=== PATIENT | male | born 1950 | race Caucasian/White ===

== ENCOUNTER 2016-06-24 11:54 | Emergency (ER) | payer BC ==
[2016-06-24] MEDS ORDERED: KETOROLAC 30 MG/ML VIAL (J1885) As Ordered ONE (13:13)
[2016-06-24] MEDS ORDERED: MORPHINE 2 MG/ML 1ML SYRINGE As Ordered ONE (13:13)
[2016-06-24] MEDS ORDERED: ONDANSETRON 4MG/2ML VIAL (J2405) As Ordered ONE (13:13)
[2016-06-24 13:41] LABS: BASO % 0.6 % (0.0-1.0); EOS # 0.1 K/mm3 (0.0-0.50); EOS % 1.7 % (0.0-3.0); LARGE UNSTAINED CELL # 0.1 K/mm3 (0.0-0.4); LARGE UNSTAINED CELL % 2.6 % (0.0-4.0); LYMPH # 1.2 K/mm3 (1.5-4.5); MEAN CORPUSCULAR HEMOGLOBIN 30.8 pg (27.0-33.0); MEAN CORPUSCULAR HGB CONC 35.2 g/dl (32.0-36.5); MEAN CORPUSCULAR VOLUME 87.7 fl (80.0-96.0); MONO # 0.4 K/mm3 (0.0-0.8); MONO % 7.9 % (0.0-5.0); NEUTROPHILS # 3.5 K/mm3 (1.8-7.7); NEUTROPHILS % 67.2 % (36.0-66.0); PLATELET COUNT, AUTOMATED 228 k/mm3 (150-450); RED CELL DISTRIBUTION WIDTH 12.8 % (11.5-14.5); WHITE BLOOD COUNT 5.2 K/mm3 (4.0-10.0)
--- NOTE | 2016-06-24 13:48 | REP ---
CT ABDOMEN AND PELVIS WITHOUT IV OR ORAL CONTRAST: HISTORY: Left upper quadrant pain. 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 The lung window settings show that the lung bases are clear. There is no evidence of pleural effusion. The liver and the spleen are normal in size and homogeneous in texture. Gallbladder is unremarkable. No pancreatic abnormality is observed. No adrenal lesion is seen. Small and large intestinal bowel loops are normal in the upper abdomen. The kidneys are morphologically intact. Pelvic CT images show normal large and small bowel loops as well. There is no CT evidence of appendicitis. No abdominal wall defect is seen. No pelvic mass or adenopathy is noted. No bony destructive lesion seen. IMPRESSION: No significant abnormality noted. No urinary tract calculus or hydronephrosis seen. Signed by Volodymyr Fernández MD 06/24/2016 02:06 P
[2016-06-24 14:02] LABS: ALBUMIN/GLOBULIN RATIO 1.38 (1.00-1.93); ALKALINE PHOSPHATASE 77 U/L (45-117); ALT/SGPT 20 U/L (12-78); AMYLASE 35 U/L (25-115); ANION GAP 9 MEQ/L (8-16); AST/SGOT 14 U/L (15-37); BILIRUBIN,DIRECT 0.2 MG/DL (0.0-0.2); BILIRUBIN,TOTAL 0.9 MG/DL (0.2-1.0); BLOOD UREA NITROGEN 12 MG/DL (7-18); CALCIUM LEVEL 8.5 MG/DL (8.8-10.2); CARBON DIOXIDE LEVEL 27 MEQ/L (21-32); CHLORIDE LEVEL 105 MEQ/L (98-107); CREATININE FOR GFR 0.82 MG/DL (0.70-1.30); GLOMERULAR FILTRATION RATE > 60.0 (>49); GLUCOSE, FASTING 106 MG/DL (80-110); POTASSIUM SERUM 3.6 MEQ/L (3.5-5.1); SODIUM LEVEL 141 MEQ/L (136-145); TOTAL PROTEIN 6.9 GM/DL (6.4-8.2)
--- NOTE | 2016-06-24 15:38 | EDDOCDS ---
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 Presenting complaint: Patient states: left upper abd pain since last feb. saw PMD tues for pain. no n/v/d. pain just wont go away. had CT scan mar and negative for hernia. was having pain from LUQ to groin/rectum. pain in groin and rectum improved. Adult Sepsis Screening: The patient does not have new or worsening altered mentation. Patient's respiratory rate is less than 22. Systolic blood pressure is greater than 100. Patient has a qSOFA score of 0- Negative Sepsis Screen. Suicide/Homicide risk assessment- the patient denies having any suicidal and/or homicidal ideations and does not present with any other emotional, behavioral or mental health complaints. Status: Patient is not a personal service workers or dependent. Transition of care: patient was not received from another setting of care. 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 srm Triage Assessment: 12:10 General: Appears in no apparent distress, Behavior is appropriate for age, cooperative. srm Pain: Pain currently is 10 out of 10 on a pain scale. Pt Declines HIV testing. GI: Reports left upper abdominal pain. Historical: - Allergies: no known allergies; - Home Meds: 1. Norvasc Unknown Oral once daily 2. omeprazole 20 mg Oral cpDR 1 cap 2 times per day - PMHx: GERD; Hernia; - PSHx: hernia; hydrocele; - Social history: Smoking status: Patient states was never smoker of tobacco. No barriers to communication noted, The patient speaks fluent Czech, Speaks appropriately for age. - Family history: No immediate family members are acutely ill. - : The pt / caregiver states he / she is not on anticoagulants. Home medication list is obtained from the patient. - Exposure Risk Screening:: None identified. Screenin:35 Screening information is obtained from the patient. Fall risk: No risks identified. mb9 Assistance ADL's: requires no assistance with activities of daily living. Abuse/DV Screen: The patient / caregiver reports he/she is: not in a situation that causes fear, pain or injury. Nutritional screening: No deficits noted. Advance Directives: There is no active DNR order. home support is adequate. Assessment: 13:35 General: Appears in no apparent distress, Behavior is appropriate for age, cooperative. mb9 Pain: Location: left upper quadrant and left lower quadrant Pain currently is 8 out of 10 on a pain scale. Respiratory: Airway is patent Respiratory effort is even, unlabored, Breath sounds are clear bilaterally. GI: Abdomen is flat, non- distended Bowel sounds present X 4 quads. Abd is soft and non tender X 4 quads. 14:22 Reassessment: Patient appears in no apparent distress at this time. Patient states mb9 feeling better. Patient states symptoms have improved. General: Appears in no apparent distress, Behavior is appropriate for age, cooperative. Pain: Location: left lower quadrant and left upper quadrant Pain currently is 1 out of 10 on a pain scale. Respiratory: Airway is patent Respiratory effort is even, unlabored. 15:22 Reassessment: Patient appears in no apparent distress at this time. Patient states mb9 feeling better. Adult Sepsis Screening: The patient does not have new or worsening altered mentation. Patient's respiratory rate is less than 22. Systolic blood pressure is greater than 100. Patient has a qSOFA score of 0- Negative Sepsis Screen. General: Appears in no apparent distress, Behavior is anxious. Respiratory: Airway is patent Respiratory effort is even, unlabored. Vital Signs: 11:56 BP 165 / 82 RA Sitting (auto/lg); Pulse 75; Resp 18; Temp 98.6(O); Pulse Ox 96% on R/A; rs6 Weight 70.31 kg (R); Height 5 ft. 8 in. (172.72 cm) (R); Pain 10/10; 12:55 BP 160 / 90 (auto/); mb9 12:59 Pulse 66 MON; Pulse Ox 97% ; mb9 13:10 BP 158 / 79 (auto/); mb9 13:11 Pulse 68 MON; Pulse Ox 95% ; mb9 13:25 BP 159 / 84 (auto/); mb9 13:25 Pulse 74 MON; Pulse Ox 97% ; mb9 13:40 Pulse 70 MON; Pulse Ox 95% ; mb9 13:40 BP 139 / 68 (auto/); mb9 13:55 Pulse 68 MON; Pulse Ox 95% ; mb9 13:55 BP 138 / 72 (auto/); mb9 14:10 Pulse 68 MON; Pulse Ox 96% ; mb9 14:10 BP 140 / 77 (auto/); mb9 14:21 Pain 1/10; mb9 14:22 Pain 1/10; mb9 14:25 Pulse 70 MON; Pulse Ox 96% ; mb9 14:25 BP 138 / 76 (auto/); mb9 14:40 Pulse 62 MON; Pulse Ox 96% ; mb9 14:40 BP 136 / 72 (auto/); mb9 14:55 Pulse 68 MON; Pulse Ox 96% ; mb9 14:55 BP 139 / 82 (auto/); mb9 14:57 BP 144 / 80 (auto/); mb9 14:58 Pulse 70 MON; Resp 17; Temp 97.3(TE); Pulse Ox 97% ; mb9 11:56 Body Mass Index 23.57 (70.31 kg, 172.72 cm) [facility] Vitals: 11:56 Log In Time: June 24, 2016 at 11:45. [facility] ED Course: 11:55 Patient visited by Esther De La Cruz PCA. rs6 11:55 Jeffrey Bui is Private Physician. rs6 11:55 Patient moved to Waiting rs6 11:56 Patient visited by Esther De La Cruz PCA. rs6 11:57 Patient moved to Pre RCE rs6 12:07 Triage Initiated srm 12:47 Patient moved to 18 kr3 12:53 Samy Gutierrez FNP is PHCP. ke 12:54 Patient visited by Samy Gutierrez FNP. ke 12:54 Patient visited by Samy Gutierrez FNP. ke 12:56 Patient has correct armband on for positive identification. Placed in gown. Bed in low ct3 position. Call light in reach. Side rails up X2. telemetry monitor on. Pulse ox on. NIBP on. 12:57 Patient visited by Johnson, Hannah, TOOL MAINTENANCE WORKER. ct3 13:33 Patient visited by Samy Gutierrez FNP. ke 13:35 The patient / caregiver is instructed regarding the plan of care and ED course. mb9 13:35 Inserted saline lock: 18 gauge in right forearm and blood collected. The patient mb9 tolerated the procedure well. 13:57 Patient visited by Samy Gutierrez FNP. ke 14:01 Patient name changed from Juan\S\\S\Lyn\S\ to Juan\S\Antwon\S\Lyn. EDMS 14:03 [facility] Payment Agreement was scanned into [employer] and attached to record. lg 14:13 CT ABD & PELVIS: No Contrast Returned. EDMS 14:21 Jeffrey Bui is Referral Physician. ke 14:58 Discontinued IV lock intact, bleeding controlled, pressure dressing applied, No mb9 redness/swelling at site. No procedures done that require assistance. Administered Medications: 13:34 Drug: NS 0.9% 1000 ml [sodium chloride 0.9 % intravenous solution] Route: IV; Rate: 100 mb9 mL/hr; Site: right forearm; 13:34 Drug: Ondansetron 4 mg [ondansetron HCl 2 mg/mL intravenous solution (2 mL)] Route: mb9 IVP; Site: right forearm; 14:22 Follow up: Response: Nausea is resolved mb9 13:34 Drug: ketorolac 30 mg [ketorolac 30 mg/mL (1 mL) injection solution (1 mL)] Route: IVP; mb9 Site: right forearm; 14:22 Follow up: Pain 1/10 Adult; Response: Pain is decreased mb9 13:34 Drug: morphine 2 mg [morphine 2 mg/mL intravenous cartridge (1 mL)] Route: IVP; Site: mb9 right forearm; 14:21 Follow up: Pain 1/10 Adult; Response: Confirmed pt not driving.; Pain is decreased mb9 Order Results: Lab Order: Amylase; SPEC'M 06/24/16 13:30 Test: AMYLASE; Value: 35; Range: 25-115; Units: U/L; Status: F Lab Order: Basic Metabolic Profile; SPEC'M 06/24/16 13:30 Test: GLUCOSE, FASTING; Value: 106; Range: 80-110; Units: MG/DL; Status: F Test: BLOOD UREA NITROGEN; Value: 12; Range: 7-18; Units: MG/DL; Status: F Test: CREATININE FOR GFR; Value: 0.82; Range: 0.70-1.30; Units: MG/DL; Status: F Test: GLOMERULAR FILTRATION RATE; Value: > 60.0; Range: >49; Status: F Test: SODIUM LEVEL; Value: 141; Range: 136-145; Units: MEQ/L; Status: F Test: POTASSIUM SERUM; Value: 3.6; Range: 3.5-5.1; Units: MEQ/L; Status: F Test: CHLORIDE LEVEL; Value: 105; Range: 98-107; Units: MEQ/L; Status: F Test: CARBON DIOXIDE LEVEL; Value: 27; Range: 21-32; Units: MEQ/L; Status: F Test: ANION GAP; Value: 9; Range: 8-16; Units: MEQ/L; Status: F Test: CALCIUM LEVEL; Value: 8.5; Range: 8.8-10.2; Abnormal: Below low normal; Units: MG/DL; Status: F Test Note: ; Units are mL/min/1.73 m2 Chronic Kidney Disease Staging per NKF: Stage I & II GFR >=60 Normal to Mildly Decreased Stage III GFR 30-59 Moderately Decreased Stage IV GFR 15-29 Severely Decreased Stage V GFR <15 Very Little GFR Left ESRD GFR <15 on INFORMATION RESOURCES MANAGER Lab Order: CBC with Diff; SPEC'M 06/24/16 13:30 Test: WHITE BLOOD COUNT; Value: 5.2; Range: 4.0-10.0; Units: K/mm3; Status: F Test: RED BLOOD COUNT; Value: 4.74; Range: 4.30-6.10; Units: M/mm3; Status: F Test: HEMOGLOBIN; Value: 14.6; Range: 14.0-18.0; Units: g/dl; Status: F Test: HEMATOCRIT; Value: 41.6; Range: 42.0-52.0; Abnormal: Below low normal; Units: %; Status: F Test: MEAN CORPUSCULAR VOLUME; Value: 87.7; Range: 80.0-96.0; Units: fl; Status: F Test: MEAN CORPUSCULAR HEMOGLOBIN; Value: 30.8; Range: 27.0-33.0; Units: pg; Status: F Test: MEAN CORPUSCULAR HGB CONC; Value: 35.2; Range: 32.0-36.5; Units: g/dl; Status: F Test: RED CELL DISTRIBUTION WIDTH; Value: 12.8; Range: 11.5-14.5; Units: %; Status: F Test: PLATELET COUNT, AUTOMATED; Value: 228; Range: 150-450; Units: k/mm3; Status: F Test: NEUTROPHILS %; Value: 67.2; Range: 36.0-66.0; Abnormal: Above high normal; Units: %; Status: F Test: LYMPH %; Value: 20.0; Range: 24.0-44.0; Abnormal: Below low normal; Units: %; Status: F Test: MONO %; Value: 7.9; Range: 0.0-5.0; Abnormal: Above high normal; Units: %; Status: F Test: EOS %; Value: 1.7; Range: 0.0-3.0; Units: %; Status: F Test: BASO %; Value: 0.6; Range: 0.0-1.0; Units: %; Status: F Test: LARGE UNSTAINED CELL %; Value: 2.6; Range: 0.0-4.0; Units: %; Status: F Test: NEUTROPHILS #; Value: 3.5; Range: 1.8-7.7; Units: K/mm3; Status: F Test: LYMPH #; Value: 1.2; Range: 1.5-4.5; Abnormal: Below low normal; Units: K/mm3; Status: F Test: MONO #; Value: 0.4; Range: 0.0-0.8; Units: K/mm3; Status: F Test: EOS #; Value: 0.1; Range: 0.0-0.50; Units: K/mm3; Status: F Test: BASO #; Value: 0.0; Range: 0.0-0.2; Units: K/mm3; Status: F Test: LARGE UNSTAINED CELL #; Value: 0.1; Range: 0.0-0.4; Units: K/mm3; Status: F Lab Order: Lipase; SPEC'M 06/24/16 13:30 Test: LIPASE; Value: 91; Range: 73-393; Units: U/L; Status: F Lab Order: Liver Profile; SPEC'M 06/24/16 13:30 Test: AST/SGOT; Value: 14; Range: 15-37; Abnormal: Below low normal; Units: U/L; Status: F Test: ALT/SGPT; Value: 20; Range: 12-78; Units: U/L; Status: F Test: ALKALINE PHOSPHATASE; Value: 77; Range: 45-117; Units: U/L; Status: F Test: BILIRUBIN,TOTAL; Value: 0.9; Range: 0.2-1.0; Units: MG/DL; Status: F Test: BILIRUBIN,DIRECT; Value: 0.2; Range: 0.0-0.2; Units: MG/DL; Status: F Test: TOTAL PROTEIN; Value: 6.9; Range: 6.4-8.2; Units: GM/DL; Status: F Test: ALBUMIN; Value: 4.0; Range: 3.2-5.2; Units: GM/DL; Status: F Test: ALBUMIN/GLOBULIN RATIO; Value: 1.38; Range: 1.00-1.93; Status: F Radiology Order: CT ABD & PELVIS: No Contrast Test: CT ABD & PELVIS: No Contrast REASON FOR EXAMINATION: abd pain luq; CT ABDOMEN AND PELVIS WITHOUT IV OR ORAL CONTRAST:; ; HISTORY: Left upper quadrant pain.; ; FINDINGS: 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 The lung window; settings show that the lung bases are clear. There is no evidence of pleural; effusion. The liver and the spleen are normal in size and homogeneous in; texture. Gallbladder is unremarkable. No pancreatic abnormality is observed.; No adrenal lesion is seen. Small and large intestinal bowel loops are normal in; the upper abdomen. The kidneys are morphologically intact.; ; Pelvic CT images show normal large and small bowel loops as well. There is no CT; evidence of appendicitis. No abdominal wall defect is seen. No pelvic mass or; adenopathy is noted. No bony destructive lesion seen.; ; IMPRESSION:; ; No significant abnormality noted. No urinary tract calculus or hydronephrosis; seen.; ; ; Signed by; Volodymyr Fernández MD 06/24/2016 02:06 P; Outcome: 14:22 Discharge ordered by Provider. ashly 14:58 Discharge Assessment: Patient awake, alert and oriented x 3. No cognitive and/or mb9 functional deficits noted. Patient verbalized understanding of disposition instructions. patient administered narcotics - yes. Pt provided with safe discharge. The following High Risk Discharge criteria are identified: None. Discharged to home ambulatory. Condition: good Condition: stable Condition: improved. Discharge instructions given to patient, Instructed on discharge instructions, follow up and referral plans. medication usage, diet, Demonstrated understanding of instructions, medications, Pt was receptive of discharge instructions/ teaching. Prescriptions given X 2. No special radiology studies were completed. Property :Personal belongings accompany Pt. 15:37 Patient left the ED. mb9 Signatures: Dispatcher [employer] EDMS Rose Funes, RN RN srm Nole De Dios, Yonathan Reg lg Samy Gutierrez, SUPERVISOR COLD ROLLING SUPERVISOR COLD ROLLING Rae Bai RN RN kr3 Hannah Johnson, TOOL MAINTENANCE WORKER TOOL MAINTENANCE WORKER ct3 William Dejesus RN RN mb9 Esther De La Cruz, TOOL MAINTENANCE WORKER TOOL MAINTENANCE WORKER rs6 Corrections: (The following items were deleted from the chart) 12:11 12:01 Presenting complaint: Patient states: left upper abd pain since last feb. saw PMD nestor jeff for pain. no n/v/d. pain just wont go away. had CT scan nov and negative for hernia. was having pain from LUQ to groin/rectum. pain in groin and rectum improved. [facility] 12:11 12:01 Adult Sepsis Screening: The patient does not have new or worsening altered srm mentation. Patient's respiratory rate is less than 22. Systolic blood pressure is greater than 100. Patient has a qSOFA score of 0- Negative Sepsis Screen. srm MTDD
--- NOTE | 2016-06-24 15:38 | EDDOCDS ---
Physician Documentation [facility] Name: Juan Nicholson Age: 65 yrs Sex: Male : 1950 Arrival Date: 06/24/2016 Time: 11:54 Bed 18 Private MD: Jeffrey Bui Disposition: 06/24/16 14:22 Discharged to Home/Self Care. Impression: Abdominal and pelvic pain. - Condition is Stable. - Discharge Instructions: Abdominal Pain, Adult. - Prescriptions for Percocet 5- 325 mg Oral Tablet - take 1 tablet by ORAL route every 6 hours As needed MDD: 4 tabs; 20 tablet. Zofran 4 mg Oral Tablet - take 1 tablet by ORAL route 4 times per day As needed; 10 tablet. - Medication Reconciliation, Local Pharmacy Hours form. - Follow up: Jeffrey Bui; When: 2 - 3 days; Reason: Recheck today's complaints, Continuance of care. - Problem is an ongoing problem. - Symptoms have improved. Historical: - Allergies: no known allergies; - Home Meds: 1. Norvasc Unknown Oral once daily 2. omeprazole 20 mg Oral cpDR 1 cap 2 times per day - PMHx: GERD; Hernia; - PSHx: hernia; hydrocele; - Social history: Smoking status: Patient states was never smoker of tobacco. No barriers to communication noted, The patient speaks fluent Luxembourger, Speaks appropriately for age. - Family history: No immediate family members are acutely ill. - : The pt / caregiver states he / she is not on anticoagulants. Home medication list is obtained from the patient. - Exposure Risk Screening:: None identified. Vital Signs: 06/24 11:56 BP 165 / 82 RA Sitting (auto/lg); Pulse 75; Resp 18; Temp 98.6(O); Pulse Ox 96% on R/A; rs6 Weight 70.31 kg / 155.01 lbs (R); Height 5 ft. 8 in. (172.72 cm) (R); Pain 10/10; 12:55 BP 160 / 90 (auto/); mb9 12:59 Pulse 66 MON; Pulse Ox 97% ; mb9 13:10 BP 158 / 79 (auto/); mb9 13:11 Pulse 68 MON; Pulse Ox 95% ; mb9 13:25 BP 159 / 84 (auto/); mb9 13:25 Pulse 74 MON; Pulse Ox 97% ; mb9 13:40 Pulse 70 MON; Pulse Ox 95% ; mb9 13:40 BP 139 / 68 (auto/); mb9 13:55 Pulse 68 MON; Pulse Ox 95% ; mb9 13:55 BP 138 / 72 (auto/); mb9 14:10 Pulse 68 MON; Pulse Ox 96% ; mb9 14:10 BP 140 / 77 (auto/); mb9 14:21 Pain 1/10; mb9 14:22 Pain 1/10; mb9 14:25 Pulse 70 MON; Pulse Ox 96% ; mb9 14:25 BP 138 / 76 (auto/); mb9 14:40 Pulse 62 MON; Pulse Ox 96% ; mb9 14:40 BP 136 / 72 (auto/); mb9 14:55 Pulse 68 MON; Pulse Ox 96% ; mb9 14:55 BP 139 / 82 (auto/); mb9 14:57 BP 144 / 80 (auto/); mb9 14:58 Pulse 70 MON; Resp 17; Temp 97.3(TE); Pulse Ox 97% ; mb9 11:56 Body Mass Index 23.57 (70.31 kg, 172.72 cm) rs6 MDM: 12:10 Undress patient appropriately for examination ordered. sd1 12:11 Amylase Ordered. EDMS 12:11 Basic Metabolic Profile Ordered. EDMS 12:11 CBC with Diff Ordered. EDMS 12:11 Lipase Ordered. EDMS 12:11 Liver Profile Ordered. EDMS 12:11 NOTHING BY MOUTH+DIET ordered. EDMS 12:12 ECG WITH READING ER PHYS+CARDIAG ordered. EDMS 12:59 IV Saline Lock ordered. ke 12:59 NS 0.9% 1000 ml IV at 100 mL/hr continuous ordered. ke 12:59 Ondansetron 4 mg IVP once ordered. ke 12:59 ketorolac 30 mg IVP once ordered. ke 12:59 morphine 2 mg IVP once ordered. ke 13:00 CT ABD & PELVIS: No Contrast Ordered. EDMS 13:37 Financial registration complete. lg 13:52 CBC with Diff Reviewed. ke 14:03 [facility] [place] Agreement was scanned into [employer] and attached to record. lg 14:04 Basic Metabolic Profile Reviewed. ke 14:04 Liver Profile Reviewed. ke 14:04 Amylase Reviewed. ke 14:04 Lipase Reviewed. ke Administered Medications: 13:34 Drug: NS 0.9% 1000 ml [sodium chloride 0.9 % intravenous solution] Route: IV; Rate: 100 mb9 mL/hr; Site: right forearm; 13:34 Drug: Ondansetron 4 mg [ondansetron HCl 2 mg/mL intravenous solution (2 mL)] Route: mb9 IVP; Site: right forearm; 14:22 Follow up: Response: Nausea is resolved mb9 13:34 Drug: ketorolac 30 mg [ketorolac 30 mg/mL (1 mL) injection solution (1 mL)] Route: IVP; mb9 Site: right forearm; 14:22 Follow up: Pain 1/10 Adult; Response: Pain is decreased mb9 13:34 Drug: morphine 2 mg [morphine 2 mg/mL intravenous cartridge (1 mL)] Route: IVP; Site: mb9 right forearm; 14:21 Follow up: Pain 1/10 Adult; Response: Confirmed pt not driving.; Pain is decreased mb9 Signatures: Dispatcher [employer] Lyudmila Reid MD MD sd1 Rose Funes, SKYLAR RN srm Noel De Dios, Reg Reg lg Samy Gutierrez, SENIOR JAVA SOFTWARE DEVELOPER SENIOR JAVA SOFTWARE DEVELOPER William OrellanaRN RN mb9 The chart was reviewed and I authenticate all verbal orders and agree with the evaluation and treatment provided.Attachments: 14:03 COUNT INCLUDES THE [facility] Payment Agreement lg MTDD
--- NOTE | 2016-06-25 07:05 | ECGEPIP ---
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 RBBB NONSPECIFIC T-WAVE ABNORMALITY NO PRIORS Electronically Signed On 06-25-2016 7:05:32 EST by Calin Birmingham
--- NOTE | 2016-06-26 16:38 | EDDOCDS ---
Physician Documentation [facility] Name: Juan Nicholson Age: 65 yrs Sex: Male : 1950 Arrival Date: 06/24/2016 Time: 11:54 Bed 18 Private MD: Jeffrey Bui Disposition: 06/24/16 14:22 Discharged to Home/Self Care. Impression: Abdominal and pelvic pain. - Condition is Stable. - Discharge Instructions: Abdominal Pain, Adult. - Prescriptions for Percocet 5- 325 mg Oral Tablet - take 1 tablet by ORAL route every 6 hours As needed MDD: 4 tabs; 20 tablet. Zofran 4 mg Oral Tablet - take 1 tablet by ORAL route 4 times per day As needed; 10 tablet. - Medication Reconciliation, Local Pharmacy Hours form. - Follow up: Jeffrey Bui; When: 2 - 3 days; Reason: Recheck today's complaints, Continuance of care. - Problem is an ongoing problem. - Symptoms have improved. Historical: - Allergies: no known allergies; - Home Meds: 1. Norvasc Unknown Oral once daily 2. omeprazole 20 mg Oral cpDR 1 cap 2 times per day - PMHx: GERD; Hernia; - PSHx: hernia; hydrocele; - Social history: Smoking status: Patient states was never smoker of tobacco. No barriers to communication noted, The patient speaks fluent Belizean, Speaks appropriately for age. - Family history: No immediate family members are acutely ill. - : The pt / caregiver states he / she is not on anticoagulants. Home medication list is obtained from the patient. - Exposure Risk Screening:: None identified. Vital Signs: 06/24 11:56 BP 165 / 82 RA Sitting (auto/lg); Pulse 75; Resp 18; Temp 98.6(O); Pulse Ox 96% on R/A; rs6 Weight 70.31 kg / 155.01 lbs (R); Height 5 ft. 8 in. (172.72 cm) (R); Pain 10/10; 12:55 BP 160 / 90 (auto/); mb9 12:59 Pulse 66 MON; Pulse Ox 97% ; mb9 13:10 BP 158 / 79 (auto/); mb9 13:11 Pulse 68 MON; Pulse Ox 95% ; mb9 13:25 BP 159 / 84 (auto/); mb9 13:25 Pulse 74 MON; Pulse Ox 97% ; mb9 13:40 Pulse 70 MON; Pulse Ox 95% ; mb9 13:40 BP 139 / 68 (auto/); mb9 13:55 Pulse 68 MON; Pulse Ox 95% ; mb9 13:55 BP 138 / 72 (auto/); mb9 14:10 Pulse 68 MON; Pulse Ox 96% ; mb9 14:10 BP 140 / 77 (auto/); mb9 14:21 Pain 1/10; mb9 14:22 Pain 1/10; mb9 14:25 Pulse 70 MON; Pulse Ox 96% ; mb9 14:25 BP 138 / 76 (auto/); mb9 14:40 Pulse 62 MON; Pulse Ox 96% ; mb9 14:40 BP 136 / 72 (auto/); mb9 14:55 Pulse 68 MON; Pulse Ox 96% ; mb9 14:55 BP 139 / 82 (auto/); mb9 14:57 BP 144 / 80 (auto/); mb9 14:58 Pulse 70 MON; Resp 17; Temp 97.3(TE); Pulse Ox 97% ; mb9 11:56 Body Mass Index 23.57 (70.31 kg, 172.72 cm) rs6 MDM: 12:10 Undress patient appropriately for examination ordered. sd1 12:11 Amylase Ordered. EDMS 12:11 Basic Metabolic Profile Ordered. EDMS 12:11 CBC with Diff Ordered. EDMS 12:11 Lipase Ordered. EDMS 12:11 Liver Profile Ordered. EDMS 12:11 NOTHING BY MOUTH+DIET ordered. EDMS 12:12 ECG WITH READING ER PHYS+CARDIAG ordered. EDMS 12:59 IV Saline Lock ordered. ke 12:59 NS 0.9% 1000 ml IV at 100 mL/hr continuous ordered. ke 12:59 Ondansetron 4 mg IVP once ordered. ke 12:59 ketorolac 30 mg IVP once ordered. ke 12:59 morphine 2 mg IVP once ordered. ke 13:00 CT ABD & PELVIS: No Contrast Ordered. EDMS 13:37 Financial registration complete. lg 13:52 CBC with Diff Reviewed. ke 14:03 [facility] Payment Agreement was scanned into [employer] and attached to record. lg 14:04 Basic Metabolic Profile Reviewed. ke 14:04 Liver Profile Reviewed. ke 14:04 Amylase Reviewed. ke 14:04 Lipase Reviewed. ke 06/25 11:39 T-Sheet-- Draft Copy was scanned into [employer] and attached to record. gb 11:39 ECG/EKG was scanned into [employer] and attached to record. gb Administered Medications: 06/24 13:34 Drug: NS 0.9% 1000 ml [sodium chloride 0.9 % intravenous solution] Route: IV; Rate: 100 mb9 mL/hr; Site: right forearm; 13:34 Drug: Ondansetron 4 mg [ondansetron HCl 2 mg/mL intravenous solution (2 mL)] Route: mb9 IVP; Site: right forearm; 14:22 Follow up: Response: Nausea is resolved mb9 13:34 Drug: ketorolac 30 mg [ketorolac 30 mg/mL (1 mL) injection solution (1 mL)] Route: IVP; mb9 Site: right forearm; 14:22 Follow up: Pain 1/10 Adult; Response: Pain is decreased mb9 13:34 Drug: morphine 2 mg [morphine 2 mg/mL intravenous cartridge (1 mL)] Route: IVP; Site: mb9 right forearm; 14:21 Follow up: Pain 1/10 Adult; Response: Confirmed pt not driving.; Pain is decreased mb9 Signatures: Dispatcher [employer] EDLyudmila Mccullough MD MD sd1 Rose Funes, RN RN [facility] HospitalN[facility] pope, Reg Reg gb Noel De Dios, Reg Reg lg Samy Gutierrez, WATER TREATMENT PLANT ENGINEER WATER TREATMENT PLANT ENGINEER William OrellanaRN RN mb9 The chart was reviewed and I authenticate all verbal orders and agree with the evaluation and treatment provided.Attachments: 14:03 [facility] Payment Agreement lg 06/25 11:39 T-Sheet-- Draft Copy gb 11:39 ECG/EKG gb Chart Complete MTDD
--- NOTE | 2016-06-26 16:38 | EDDOCDS ---
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 Presenting complaint: Patient states: left upper abd pain since last feb. saw PMD tues for pain. no n/v/d. pain just wont go away. had CT scan mar and negative for hernia. was having pain from LUQ to groin/rectum. pain in groin and rectum improved. Adult Sepsis Screening: The patient does not have new or worsening altered mentation. Patient's respiratory rate is less than 22. Systolic blood pressure is greater than 100. Patient has a qSOFA score of 0- Negative Sepsis Screen. Suicide/Homicide risk assessment- the patient denies having any suicidal and/or homicidal ideations and does not present with any other emotional, behavioral or mental health complaints. Status: Patient is not a associate field service engineer or dependent. Transition of care: patient was not received from another setting of care. 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 srm Triage Assessment: 12:10 General: Appears in no apparent distress, Behavior is appropriate for age, cooperative. srm Pain: Pain currently is 10 out of 10 on a pain scale. Pt Declines HIV testing. GI: Reports left upper abdominal pain. Historical: - Allergies: no known allergies; - Home Meds: 1. Norvasc Unknown Oral once daily 2. omeprazole 20 mg Oral cpDR 1 cap 2 times per day - PMHx: GERD; Hernia; - PSHx: hernia; hydrocele; - Social history: Smoking status: Patient states was never smoker of tobacco. No barriers to communication noted, The patient speaks fluent Vietnamese, Speaks appropriately for age. - Family history: No immediate family members are acutely ill. - : The pt / caregiver states he / she is not on anticoagulants. Home medication list is obtained from the patient. - Exposure Risk Screening:: None identified. Screenin:35 Screening information is obtained from the patient. Fall risk: No risks identified. mb9 Assistance ADL's: requires no assistance with activities of daily living. Abuse/DV Screen: The patient / caregiver reports he/she is: not in a situation that causes fear, pain or injury. Nutritional screening: No deficits noted. Advance Directives: There is no active DNR order. home support is adequate. Assessment: 13:35 General: Appears in no apparent distress, Behavior is appropriate for age, cooperative. mb9 Pain: Location: left upper quadrant and left lower quadrant Pain currently is 8 out of 10 on a pain scale. Respiratory: Airway is patent Respiratory effort is even, unlabored, Breath sounds are clear bilaterally. GI: Abdomen is flat, non- distended Bowel sounds present X 4 quads. Abd is soft and non tender X 4 quads. 14:22 Reassessment: Patient appears in no apparent distress at this time. Patient states mb9 feeling better. Patient states symptoms have improved. General: Appears in no apparent distress, Behavior is appropriate for age, cooperative. Pain: Location: left lower quadrant and left upper quadrant Pain currently is 1 out of 10 on a pain scale. Respiratory: Airway is patent Respiratory effort is even, unlabored. 15:22 Reassessment: Patient appears in no apparent distress at this time. Patient states mb9 feeling better. Adult Sepsis Screening: The patient does not have new or worsening altered mentation. Patient's respiratory rate is less than 22. Systolic blood pressure is greater than 100. Patient has a qSOFA score of 0- Negative Sepsis Screen. General: Appears in no apparent distress, Behavior is anxious. Respiratory: Airway is patent Respiratory effort is even, unlabored. Vital Signs: 11:56 BP 165 / 82 RA Sitting (auto/lg); Pulse 75; Resp 18; Temp 98.6(O); Pulse Ox 96% on R/A; rs6 Weight 70.31 kg (R); Height 5 ft. 8 in. (172.72 cm) (R); Pain 10/10; 12:55 BP 160 / 90 (auto/); mb9 12:59 Pulse 66 MON; Pulse Ox 97% ; mb9 13:10 BP 158 / 79 (auto/); mb9 13:11 Pulse 68 MON; Pulse Ox 95% ; mb9 13:25 BP 159 / 84 (auto/); mb9 13:25 Pulse 74 MON; Pulse Ox 97% ; mb9 13:40 Pulse 70 MON; Pulse Ox 95% ; mb9 13:40 BP 139 / 68 (auto/); mb9 13:55 Pulse 68 MON; Pulse Ox 95% ; mb9 13:55 BP 138 / 72 (auto/); mb9 14:10 Pulse 68 MON; Pulse Ox 96% ; mb9 14:10 BP 140 / 77 (auto/); mb9 14:21 Pain 1/10; mb9 14:22 Pain 1/10; mb9 14:25 Pulse 70 MON; Pulse Ox 96% ; mb9 14:25 BP 138 / 76 (auto/); mb9 14:40 Pulse 62 MON; Pulse Ox 96% ; mb9 14:40 BP 136 / 72 (auto/); mb9 14:55 Pulse 68 MON; Pulse Ox 96% ; mb9 14:55 BP 139 / 82 (auto/); mb9 14:57 BP 144 / 80 (auto/); mb9 14:58 Pulse 70 MON; Resp 17; Temp 97.3(TE); Pulse Ox 97% ; mb9 11:56 Body Mass Index 23.57 (70.31 kg, 172.72 cm) [facility] Vitals: 11:56 Log In Time: June 24, 2016 at 11:45. [facility] ED Course: 11:55 Patient visited by Esther De La Cruz PCA. rs6 11:55 Jeffrey Bui is Private Physician. rs6 11:55 Patient moved to Waiting rs6 11:56 Patient visited by Esther De La Cruz PCA. rs6 11:57 Patient moved to Pre RCE rs6 12:07 Triage Initiated srm 12:47 Patient moved to 18 kr3 12:53 Samy Gutierrez FNP is PHCP. ke 12:54 Patient visited by Samy Gutierrez FNP. ke 12:54 Patient visited by Samy Gutierrez FNP. ke 12:56 Patient has correct armband on for positive identification. Placed in gown. Bed in low ct3 position. Call light in reach. Side rails up X2. ex chef on. Pulse ox on. NIBP on. 12:57 Patient visited by Johnson, Hannah, ETHYLENE OXIDE PANELBOARD OPERATOR. ct3 13:33 Patient visited by Samy Gutierrez FNP. ke 13:35 The patient / caregiver is instructed regarding the plan of care and ED course. mb9 13:35 Inserted saline lock: 18 gauge in right forearm and blood collected. The patient mb9 tolerated the procedure well. 13:57 Patient visited by Samy Gutierrez FNP. ke 14:01 Patient name changed from Esau\S\\S\Lyn\S\ to Esau\S\Antwon\S\Lyn. EDMS 14:03 [facility] [place] Payment Agreement was scanned into [employer] and attached to record. lg 14:13 CT ABD & PELVIS: No Contrast Returned. EDMS 14:21 Jeffrey Bui is Referral Physician. ke 14:58 Discontinued IV lock intact, bleeding controlled, pressure dressing applied, No mb9 redness/swelling at site. No procedures done that require assistance. 02 07:15 EKG-ADULT Returned. EDMS 11:39 T-Sheet-- Draft Copy was scanned into [employer] and attached to record. gb 11:39 ECG/EKG was scanned into [employer] and attached to record. gb Administered Medications: 06/24 13:34 Drug: NS 0.9% 1000 ml [sodium chloride 0.9 % intravenous solution] Route: IV; Rate: 100 mb9 mL/hr; Site: right forearm; 13:34 Drug: Ondansetron 4 mg [ondansetron HCl 2 mg/mL intravenous solution (2 mL)] Route: mb9 IVP; Site: right forearm; 14:22 Follow up: Response: Nausea is resolved mb9 13:34 Drug: ketorolac 30 mg [ketorolac 30 mg/mL (1 mL) injection solution (1 mL)] Route: IVP; mb9 Site: right forearm; 14:22 Follow up: Pain 1/10 Adult; Response: Pain is decreased mb9 13:34 Drug: morphine 2 mg [morphine 2 mg/mL intravenous cartridge (1 mL)] Route: IVP; Site: mb9 right forearm; 14:21 Follow up: Pain 1/10 Adult; Response: Confirmed pt not driving.; Pain is decreased mb9 Order Results: Lab Order: Amylase; SPEC'M 06/24/16 13:30 Test: AMYLASE; Value: 35; Range: 25-115; Units: U/L; Status: F Lab Order: Basic Metabolic Profile; SPEC'M 06/24/16 13:30 Test: GLUCOSE, FASTING; Value: 106; Range: 80-110; Units: MG/DL; Status: F Test: BLOOD UREA NITROGEN; Value: 12; Range: 7-18; Units: MG/DL; Status: F Test: CREATININE FOR GFR; Value: 0.82; Range: 0.70-1.30; Units: MG/DL; Status: F Test: GLOMERULAR FILTRATION RATE; Value: > 60.0; Range: >49; Status: F Test: SODIUM LEVEL; Value: 141; Range: 136-145; Units: MEQ/L; Status: F Test: POTASSIUM SERUM; Value: 3.6; Range: 3.5-5.1; Units: MEQ/L; Status: F Test: CHLORIDE LEVEL; Value: 105; Range: 98-107; Units: MEQ/L; Status: F Test: CARBON DIOXIDE LEVEL; Value: 27; Range: 21-32; Units: MEQ/L; Status: F Test: ANION GAP; Value: 9; Range: 8-16; Units: MEQ/L; Status: F Test: CALCIUM LEVEL; Value: 8.5; Range: 8.8-10.2; Abnormal: Below low normal; Units: MG/DL; Status: F Test Note: ; Units are mL/min/1.73 m2 Chronic Kidney Disease Staging per NKF: Stage I & II GFR >=60 Normal to Mildly Decreased Stage III GFR 30-59 Moderately Decreased Stage IV GFR 15-29 Severely Decreased Stage V GFR <15 Very Little GFR Left ESRD GFR <15 on INTELLECTUAL PROPERTY MANAGER Lab Order: CBC with Diff; SPEC'M 06/24/16 13:30 Test: WHITE BLOOD COUNT; Value: 5.2; Range: 4.0-10.0; Units: K/mm3; Status: F Test: RED BLOOD COUNT; Value: 4.74; Range: 4.30-6.10; Units: M/mm3; Status: F Test: HEMOGLOBIN; Value: 14.6; Range: 14.0-18.0; Units: g/dl; Status: F Test: HEMATOCRIT; Value: 41.6; Range: 42.0-52.0; Abnormal: Below low normal; Units: %; Status: F Test: MEAN CORPUSCULAR VOLUME; Value: 87.7; Range: 80.0-96.0; Units: fl; Status: F Test: MEAN CORPUSCULAR HEMOGLOBIN; Value: 30.8; Range: 27.0-33.0; Units: pg; Status: F Test: MEAN CORPUSCULAR HGB CONC; Value: 35.2; Range: 32.0-36.5; Units: g/dl; Status: F Test: RED CELL DISTRIBUTION WIDTH; Value: 12.8; Range: 11.5-14.5; Units: %; Status: F Test: PLATELET COUNT, AUTOMATED; Value: 228; Range: 150-450; Units: k/mm3; Status: F Test: NEUTROPHILS %; Value: 67.2; Range: 36.0-66.0; Abnormal: Above high normal; Units: %; Status: F Test: LYMPH %; Value: 20.0; Range: 24.0-44.0; Abnormal: Below low normal; Units: %; Status: F Test: MONO %; Value: 7.9; Range: 0.0-5.0; Abnormal: Above high normal; Units: %; Status: F Test: EOS %; Value: 1.7; Range: 0.0-3.0; Units: %; Status: F Test: BASO %; Value: 0.6; Range: 0.0-1.0; Units: %; Status: F Test: LARGE UNSTAINED CELL %; Value: 2.6; Range: 0.0-4.0; Units: %; Status: F Test: NEUTROPHILS #; Value: 3.5; Range: 1.8-7.7; Units: K/mm3; Status: F Test: LYMPH #; Value: 1.2; Range: 1.5-4.5; Abnormal: Below low normal; Units: K/mm3; Status: F Test: MONO #; Value: 0.4; Range: 0.0-0.8; Units: K/mm3; Status: F Test: EOS #; Value: 0.1; Range: 0.0-0.50; Units: K/mm3; Status: F Test: BASO #; Value: 0.0; Range: 0.0-0.2; Units: K/mm3; Status: F Test: LARGE UNSTAINED CELL #; Value: 0.1; Range: 0.0-0.4; Units: K/mm3; Status: F Lab Order: Lipase; SPEC'M 06/24/16 13:30 Test: LIPASE; Value: 91; Range: 73-393; Units: U/L; Status: F Lab Order: Liver Profile; SPEC'M 06/24/16 13:30 Test: AST/SGOT; Value: 14; Range: 15-37; Abnormal: Below low normal; Units: U/L; Status: F Test: ALT/SGPT; Value: 20; Range: 12-78; Units: U/L; Status: F Test: ALKALINE PHOSPHATASE; Value: 77; Range: 45-117; Units: U/L; Status: F Test: BILIRUBIN,TOTAL; Value: 0.9; Range: 0.2-1.0; Units: MG/DL; Status: F Test: BILIRUBIN,DIRECT; Value: 0.2; Range: 0.0-0.2; Units: MG/DL; Status: F Test: TOTAL PROTEIN; Value: 6.9; Range: 6.4-8.2; Units: GM/DL; Status: F Test: ALBUMIN; Value: 4.0; Range: 3.2-5.2; Units: GM/DL; Status: F Test: ALBUMIN/GLOBULIN RATIO; Value: 1.38; Range: 1.00-1.93; Status: F Radiology Order: EKG-ADULT Test: EKG-ADULT REASON FOR EXAMINATION: Abdomen Pain; Stationary ECG Study; [facility] - ED; ; Test Date: 2016-06-24; Pat Name: ESAU NICHOLSON Department:; Room: -; Gender: M Sap Grc Security: lr; : 1950 Requested By: Lyudmila Mckeon; Order Number: [id number] Reading MD: Calin Birmingham; Measurements; Intervals [place]; Rate: 67 P: 69; NE: 151 QRS: 47; QRSD: 101 T: 27; QT: 401; QTc: 426; Interpretive Statements; SINUS RHYTHM; POSSIBLE LAE; INC. RBBB; NONSPECIFIC T-WAVE ABNORMALITY; NO PRIORS; Electronically Signed On 06-25-2016 7:05:32 EST by Calin Birmingham; Radiology Order: CT ABD & PELVIS: No Contrast Test: CT ABD & PELVIS: No Contrast REASON FOR EXAMINATION: abd pain luq; CT ABDOMEN AND PELVIS WITHOUT IV OR ORAL CONTRAST:; ; HISTORY: Left upper quadrant pain.; ; FINDINGS: Preliminary digital circle beveler radiograph is unremarkable. The lung window; settings show that the lung bases are clear. There is no evidence of pleural; effusion. The liver and the spleen are normal in size and homogeneous in; texture. Gallbladder is unremarkable. No pancreatic abnormality is observed.; No adrenal lesion is seen. Small and large intestinal bowel loops are normal in; the upper abdomen. The kidneys are morphologically intact.; ; Pelvic CT images show normal large and small bowel loops as well. There is no CT; evidence of appendicitis. No abdominal wall defect is seen. No pelvic mass or; adenopathy is noted. No bony destructive lesion seen.; ; IMPRESSION:; ; No significant abnormality noted. No urinary tract calculus or hydronephrosis; seen.; ; ; Signed by; Volodymyr Fernández MD 06/24/2016 02:06 P; Outcome: 14:22 Discharge ordered by Provider. ke 14:58 Discharge Assessment: Patient awake, alert and oriented x 3. No cognitive and/or mb9 functional deficits noted. Patient verbalized understanding of disposition instructions. patient administered narcotics - yes. Pt provided with safe discharge. The following High Risk Discharge criteria are identified: None. Discharged to home ambulatory. Condition: good Condition: stable Condition: improved. Discharge instructions given to patient, Instructed on discharge instructions, follow up and referral plans. medication usage, diet, Demonstrated understanding of instructions, medications, Pt was receptive of discharge instructions/ teaching. Prescriptions given X 2. No special radiology studies were completed. Property :Personal belongings accompany Pt. 15:37 Patient left the ED. mb9 Signatures: Dispatcher [employer] EDMS Rose Funes, RN SKYLAR [facility] Nga Ward, Reg Reg gb Noel De Dios, Reg Reg lg Samy Gutierrez, COPY WRITER COPY WRITER Rae Bai RN RN kr3 Hannah Johnson, ETHYLENE OXIDE PANELBOARD OPERATOR ETHYLENE OXIDE PANELBOARD OPERATOR ct3 William DejesusRN RN mb9 Esther De La Cruz, ETHYLENE OXIDE PANELBOARD OPERATOR ETHYLENE OXIDE PANELBOARD OPERATOR rs6 Corrections: (The following items were deleted from the chart) 12: 12:01 Presenting complaint: Patient states: left upper abd pain since last oct. saw PMD srm tues for pain. no n/v/d. pain just wont go away. had CT scan nov and negative for hernia. was having pain from LUQ to groin/rectum. pain in groin and rectum improved. [facility] 12: 12:01 Adult Sepsis Screening: The patient does not have new or worsening altered srm mentation. Patient's respiratory rate is less than 22. Systolic blood pressure is greater than 100. Patient has a qSOFA score of 0- Negative Sepsis Screen. srm Chart Complete MTDD
--- NOTE | 2016-06-26 16:38 | EDDOCDS ---
Physician Documentation [facility] Name: Juan Nicholson Age: 65 yrs Sex: Male : 1950 Arrival Date: 06/24/2016 Time: 11:54 Bed 18 Private MD: Jeffrey Bui Disposition: 06/24/16 14:22 Discharged to Home/Self Care. Impression: Abdominal and pelvic pain. - Condition is Stable. - Discharge Instructions: Abdominal Pain, Adult. - Prescriptions for Percocet 5- 325 mg Oral Tablet - take 1 tablet by ORAL route every 6 hours As needed MDD: 4 tabs; 20 tablet. Zofran 4 mg Oral Tablet - take 1 tablet by ORAL route 4 times per day As needed; 10 tablet. - Medication Reconciliation, Local Pharmacy Hours form. - Follow up: Jeffrey Bui; When: 2 - 3 days; Reason: Recheck today's complaints, Continuance of care. - Problem is an ongoing problem. - Symptoms have improved. Historical: - Allergies: no known allergies; - Home Meds: 1. Norvasc Unknown Oral once daily 2. omeprazole 20 mg Oral cpDR 1 cap 2 times per day - PMHx: GERD; Hernia; - PSHx: hernia; hydrocele; - Social history: Smoking status: Patient states was never smoker of tobacco. No barriers to communication noted, The patient speaks fluent [place]mese, Speaks appropriately for age. - Family history: No immediate family members are acutely ill. - : The pt / caregiver states he / she is not on anticoagulants. Home medication list is obtained from the patient. - Exposure Risk Screening:: None identified. Vital Signs: 06/24 11:56 BP 165 / 82 RA Sitting (auto/lg); Pulse 75; Resp 18; Temp 98.6(O); Pulse Ox 96% on R/A; rs6 Weight 70.31 kg / 155.01 lbs (R); Height 5 ft. 8 in. (172.72 cm) (R); Pain 10/10; 12:55 BP 160 / 90 (auto/); mb9 12:59 Pulse 66 MON; Pulse Ox 97% ; mb9 13:10 BP 158 / 79 (auto/); mb9 13:11 Pulse 68 MON; Pulse Ox 95% ; mb9 13:25 BP 159 / 84 (auto/); mb9 13:25 Pulse 74 MON; Pulse Ox 97% ; mb9 13:40 Pulse 70 MON; Pulse Ox 95% ; mb9 13:40 BP 139 / 68 (auto/); mb9 13:55 Pulse 68 MON; Pulse Ox 95% ; mb9 13:55 BP 138 / 72 (auto/); mb9 14:10 Pulse 68 MON; Pulse Ox 96% ; mb9 14:10 BP 140 / 77 (auto/); mb9 14:21 Pain 1/10; mb9 14:22 Pain 1/10; mb9 14:25 Pulse 70 MON; Pulse Ox 96% ; mb9 14:25 BP 138 / 76 (auto/); mb9 14:40 Pulse 62 MON; Pulse Ox 96% ; mb9 14:40 BP 136 / 72 (auto/); mb9 14:55 Pulse 68 MON; Pulse Ox 96% ; mb9 14:55 BP 139 / 82 (auto/); mb9 14:57 BP 144 / 80 (auto/); mb9 14:58 Pulse 70 MON; Resp 17; Temp 97.3(TE); Pulse Ox 97% ; mb9 11:56 Body Mass Index 23.57 (70.31 kg, 172.72 cm) rs6 MDM: 12:10 Undress patient appropriately for examination ordered. sd1 12:11 Amylase Ordered. EDMS 12:11 Basic Metabolic Profile Ordered. EDMS 12:11 CBC with Diff Ordered. EDMS 12:11 Lipase Ordered. EDMS 12:11 Liver Profile Ordered. EDMS 12:11 NOTHING BY MOUTH+DIET ordered. EDMS 12:12 ECG WITH READING ER PHYS+CARDIAG ordered. EDMS 12:59 IV Saline Lock ordered. ke 12:59 NS 0.9% 1000 ml IV at 100 mL/hr continuous ordered. ke 12:59 Ondansetron 4 mg IVP once ordered. ke 12:59 ketorolac 30 mg IVP once ordered. ke 12:59 morphine 2 mg IVP once ordered. ke 13:00 CT ABD & PELVIS: No Contrast Ordered. EDMS 13:37 Financial registration complete. lg 13:52 CBC with Diff Reviewed. ke 14:03 [facility] [place] Agreement was scanned into [email or web address] and attached to record. lg 14:04 Basic Metabolic Profile Reviewed. ke 14:04 Liver Profile Reviewed. ke 14:04 Amylase Reviewed. ke 14:04 Lipase Reviewed. ke 06/25 11:39 T-Sheet-- Draft Copy was scanned into [email or web address] and attached to record. gb 11:39 ECG/EKG was scanned into [email or web address] and attached to record. gb Administered Medications: 06/24 13:34 Drug: NS 0.9% 1000 ml [sodium chloride 0.9 % intravenous solution] Route: IV; Rate: 100 mb9 mL/hr; Site: right forearm; 13:34 Drug: Ondansetron 4 mg [ondansetron HCl 2 mg/mL intravenous solution (2 mL)] Route: mb9 IVP; Site: right forearm; 14:22 Follow up: Response: Nausea is resolved mb9 13:34 Drug: ketorolac 30 mg [ketorolac 30 mg/mL (1 mL) injection solution (1 mL)] Route: IVP; mb9 Site: right forearm; 14:22 Follow up: Pain 1/10 Adult; Response: Pain is decreased mb9 13:34 Drug: morphine 2 mg [morphine 2 mg/mL intravenous cartridge (1 mL)] Route: IVP; Site: mb9 right forearm; 14:21 Follow up: Pain 1/10 Adult; Response: Confirmed pt not driving.; Pain is decreased mb9 Signatures: Dispatcher [employer] EDLyudmila Mccullough MD MD sd1 Rose Funes, RN RN [facility], Reg Reg gb Noel De Dios, Reg Reg lg Samy Gutierrez, PADDED BOX SEWER PADDED BOX SEWER William OrellanaRN RN mb9 The chart was reviewed and I authenticate all verbal orders and agree with the evaluation and treatment provided.Attachments: 14:03 [facility] Payment Agreement lg 06/25 11:39 T-Sheet-- Draft Copy gb 11:39 ECG/EKG gb Chart Complete MTDD
== END 2016-06-24 15:37 | disposition home or self-care (01) ==
LOC: M ED 11:54
DX: R10.9 Unspecified abdominal pain (principal); K21.9 Gastro-esophageal reflux disease without esophagitis; Z79.899 Other long term (current) drug therapy
CPT/HCPCS: 36415; 74176; 80048; 80076; 82150; 83690; 85025; 93005; 96374; 96375; 99284; J1885; J2405